=== PATIENT | female | born 1990 | race Hispanic/Latino ===

== ENCOUNTER 2016-12-18 08:00 | Emergency (ER) | payer SELFPAY ==
[2016-12-18 09:13] LABS: Basophils % (Auto) 0.5 % (0.0-1.8); Eosinophils % (Auto) 1.9 % (0.0-4.3); Hematocrit 45.7 % (30.3-42.9); Hemoglobin 15.1 gm/dl (10.1-14.3); Mean Corpuscular HGB Conc 33 % (30-34); Mean Corpuscular Hemoglobin 29 pg (28-32); Mean Corpuscular Volume 87 fl (79-97); Platelet Count 170 K/mm3 (140-440); Red Blood Count 5.26 M/mm3 (3.65-5.03); Red Cell Distribution Width 12.6 % (13.2-15.2); White Blood Count 8.8 K/mm3 (4.5-11.0)
[2016-12-18 09:26] LABS: Alanine Aminotransferase 24 units/L (7-56); Albumin 4.6 g/dL (3.9-5); Albumin/Globulin Ratio 1.8 %; Alkaline Phosphatase 73 units/L (35-129); Anion Gap 17 mmol/L; Blood Urea Nitrogen 13 mg/dL (7-17); Calcium 9.9 mg/dL (8.4-10.2); Carbon Dioxide 24 mmol/L (22-30); Chloride 100.6 mmol/L (98-107); Glucose 103 mg/dL (65-100); Lipase 25 units/L (13-60); Potassium 3.7 mmol/L (3.6-5.0); Sodium 138 mmol/L (137-145); Total Protein 7.2 g/dL (6.3-8.2)
--- NOTE | 2016-12-18 12:07 | Emergency Department Report ---
ED Female HPI - General Chief complaint: Abdominal Pain Stated complaint: CRAMPS SMELL ORDER Time Seen by Provider: 12/18/16 11:37 Source: patient Mode of arrival: Wheelchair Limitations: No Limitations - History of Present Illness Initial comments: 26-year-old female presents to the emergency department complaining of abdominal cramping and vaginal bleeding. Patient states she has been having a foul vaginal odor for approximately 2 weeks. She began having the cramping abdominal pain shortly after onset of the odor. Patient denies vaginal discharge, but states she recently began having intermittent vaginal bleeding. Blood is described as dark in color. Patient states she was seen at [facility] 10 days ago for the symptoms. She received workup for sexually transmitted infections including HIV. She was treated empirically with IM, oral, and IV medications. Patient states she has had similar symptoms in the past related to a miscarriage. She does not think she could be at this time due to implanted control which is not set to for 5 more months. She states she called the [facility] at this facility and was told to come to the emergency department for an ultrasound. There are no other complaints. Complaint: vaginal bleeding, pelvic pain -: Gradual, week(s) (2) Radiation: non-radiating Severity: moderate Quality: cramping Consistency: constant Improves with: none Worsens with: none Are you Now?: No Associated Symptoms: vaginal bleeding - Related Data Home Medications Medication Instructions Recorded Confirmed Last Taken No Known Home Medications [No 12/18/16 12/18/16 Unknown Reported Home Medications] Allergies Allergy/AdvReac Type Severity Reaction Status Date / Time amoxicillin Allergy Unknown Verified 12/18/16 08:20 Penicillins Allergy Unknown Verified 12/18/16 08:20 ED Review of Systems ROS: Stated complaint: CRAMPS SMELL ORDER Other details as noted in HPI Comment: All other systems reviewed and negative Gastrointestinal: abdominal pain Genitourinary: abnormal menses ED Past Medical Hx - Past Medical History Previous Medical History?: Yes Additional medical history: ADD, Anxiety, - Surgical History Past Surgical History?: Yes Additional Surgical History: elective , surgical removal of Mirena IUD - Family History Family history: no significant - Social History Smoking Status: Current Every Day Smoker Substance Use Type: Marijuana, Prescribed - Medications Home Medications: Home Medications Medication Instructions Recorded Confirmed Last Taken Type No Known Home Medications [No 12/18/16 12/18/16 Unknown History Reported Home Medications] ED Physical Exam - General Limitations: No Limitations General appearance: alert, in no apparent distress - Head Head exam: Present: atraumatic, normocephalic - Eye Eye exam: Present: normal appearance, PERRL, EOMI - ENT ENT exam: Present: normal exam, normal orophraynx, mucous membranes moist - Neck Neck exam: Present: normal inspection, full ROM. Absent: tenderness - Respiratory Respiratory exam: Present: normal lung sounds bilaterally. Absent: respiratory distress - Cardiovascular Cardiovascular Exam: Present: regular rate, normal rhythm, normal heart sounds - GI/Abdominal GI/Abdominal exam: Present: soft, tenderness (mild suprapubic tenderness to palpation). Absent: distended - Extremities Exam Extremities exam: Present: normal inspection, full ROM. Absent: tenderness - Back Exam Back exam: Present: normal inspection, full ROM. Absent: tenderness - Neurological Exam Neurological exam: Present: alert, oriented X3. Absent: motor sensory deficit - Skin Skin exam: Present: warm, dry, intact ED Course Vital Signs 12/18/16 12/18/16 12/18/16 08:21 11:59 15:08 Temperature 97.2 F L 97.5 F L 97.6 F Pulse Rate 113 H 104 H 81 Respiratory 20 16 16 Rate Blood Pressure 122/87 Blood Pressure 141/97 126/82 [Left] O2 Sat by Pulse 100 100 100 Oximetry ED Medical Decision Making - Lab Data Result diagrams: 12/18/16 08:49 12/18/16 08:49 - Radiology Data Radiology results: report reviewed, image reviewed Pelvic ultrasound reveals no evidence of ovarian torsion. There are small bilateral ovarian cysts. There is no free fluid. - Medical Decision Making Lab and imaging results reviewed and discussed with the patient. I've spoken with Dr. Blake, [employer]. She recommends giving the patient 2 g of oral Flagyl and have the patient follow-up in clinic. This was discussed with the patient, who agrees. - Differential Diagnosis dysmenorrhea, spontaneous , ectopic , retained POC Critical care attestation.: If time is entered above; I have spent that time in minutes in the direct care of this critically ill patient, excluding procedure time. ED Disposition Clinical Impression: Dysmenorrhea Disposition: DISCHARGED TO HOME OR SELFCARE Is pt being admited?: No Condition: Stable Instructions: Abdominal Pain (ED) Referrals: DENYS STEIN MD [Staff Physician] - 3-5 Days Time of Disposition: 15:18
[2016-12-18 12:40] LABS: Bilirubin,Urine SM (Negative); Blood,Urine SM (Negative); Ketones,Urine 20 mg/dL (Negative); Leukocyte Esterase,Urine SM (Negative); Mucus,Urine 3+ /HPF; Nitrite,Urine NEG (Negative)
--- NOTE | 2016-12-18 14:48 | Ultrasound Report ---
FINAL REPORT PROCEDURE: US TRANSVAGINAL TECHNIQUE: Real-time transvaginal sonography in multiple planes of the pelvis was performed with image documentation. This examination was performed without Doppler. Vascular abnormalities, including ovarian torsion, will not be detectable without Doppler evaluation. CPT 31484 HISTORY: pelvic pain, vaginal bleeding COMPARISON: No prior studies are available for comparison. FINDINGS: UTERUS Size: 5.8 cm. Endometrial thickness: 5 mm. Orientation: Retroflexed. Cervix: Normal. Fibroids/masses: None. RIGHT Ovary: 4.5 x 2.0 cm. Appearance: Normal flow. 1.1 and 1.5 centimeter cysts right ovary. LEFT Ovary: 3.2 x 2.0 cm. Appearance: Normal flow. 1.3 centimeter cyst left ovary. Pelvic fluid: None. Other: None. IMPRESSION: No ovarian torsion. Small bilateral ovarian cysts..
--- NOTE | 2016-12-18 14:54 | Ultrasound Report ---
FINAL REPORT PROCEDURE: US PELVIC COMPLETE TECHNIQUE: Real-time transabdominal sonography in multiple planes of pelvis was performed with image documentation. This examination was performed without Doppler. Vascular abnormalities, including ovarian torsion, will not be detectable without Doppler evaluation. CPT 99416 HISTORY: pelvic pain, vaginal bleeding COMPARISON: Transvaginal today FINDINGS: UTERUS Size: 5.8 cm. Endometrial thickness: 5 mm. Orientation: Retroflexed. Cervix: Normal. Fibroids/masses: None. RIGHT Ovary: 4.5 x 2.0 cm. Appearance: Normal flow. Small cysts 1.1-1.5 centimeter. LEFT Ovary: 3.2 x 2.0 cm. Appearance: Normal flow. Small cyst 1.3 centimeters. Pelvic fluid: None. Other: None. IMPRESSION: Small follicular cysts. No ovarian torsion. No free fluid.
[2016-12-18] MEDS ORDERED: FLAGYL PO ONE (15:03)
[2016-12-18] MEDS ORDERED: ZOFRAN ODT PO ONE (15:03)
[2016-12-18 16:06] VITALS: BP 113/80
== END 2016-12-18 16:14 | disposition home or self-care (01) ==
LOC: ED 08:00
DX: N94.6 Dysmenorrhea, unspecified (principal); F17.200 Nicotine dependence, unspecified, uncomplicated
CPT/HCPCS: 36415; 76830; 76856; 80053; 81001; 81025; 82962; 83690; 84702; 85025; 99284; Q0162